=== PATIENT | female | born 1985 | race American Indian/Alaskan Native ===

== ENCOUNTER 2018-01-31 22:45 | Emergency (ER) | payer SELFPAY ==
[2018-01-31 23:00] VITALS: BP 141/90
--- NOTE | 2018-01-31 23:35 | XRay Report ---
FINAL REPORT EXAM: XR ANKLE 3+V RT HISTORY: swelling, rt ankle TECHNIQUE: Right ankle three views PRIORS: None. FINDINGS: There are surgical screws bridging remote healed fracture of the medial malleolus There is acute transverse mildly displaced fracture through the base of the 5th metatarsal. No additional acute fractures are identified. Joint spaces are within normal limits. IMPRESSION: Acute fracture of the base 5th metatarsal Status post ORIF of remote medial malleolar fracture
[2018-02-01] MEDS ORDERED: MOTRIN PO ONE (00:45)
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
== END 2018-02-01 03:45 | disposition home or self-care (01) ==
LOC: ED 22:45
DX: S92.351A Displaced fracture of fifth metatarsal bone, right foot, initial encounter for closed fracture (principal); N75.1 Abscess of Bartholin's gland; W94.29XA Exposure to other rapid changes in air pressure during ascent, initial encounter; Y93.6A Activity, physical games generally associated with school recess, summer camp and children; Y99.8 Other external cause status; Y92.89 Other specified places as the place of occurrence of the external cause
CPT/HCPCS: 87076; 87116; 87186